=== PATIENT | female | born 1980 | race Caucasian/White ===

== ENCOUNTER 2017-06-06 10:17 | Emergency (ER) | payer MEDICAID ==
[2017-06-06 10:39] VITALS: BP 121/76
== END 2017-06-06 12:20 | disposition home or self-care (01) ==
LOC: ED 10:17
DX: G44.209 Tension-type headache, unspecified, not intractable (principal); R10.30 Lower abdominal pain, unspecified

== ENCOUNTER 2017-09-30 20:04 | Emergency (ER) | payer MEDICAID ==
[~2017-09-30] VITALS: Ht 167.6 cm; Wt 70.9 kg
[2017-09-30 21:20] VITALS: Ht 167.6 cm; Wt 70.9 kg
[2017-10-01 01:13] VITALS: BP 105/61
== END 2017-10-01 01:13 | disposition home or self-care (01) ==
LOC: ED 20:04
DX: G43.909 Migraine, unspecified, not intractable, without status migrainosus (principal)
CPT/HCPCS: J0780; J1885

== ENCOUNTER 2018-12-09 04:21 | Emergency (ER) | payer MEDICAID ==
[~2018-12-09] VITALS: Ht 160 cm; Wt 70.8 kg
[2018-12-09 04:29] VITALS: Ht 160 cm; Wt 70.8 kg
[2018-12-09 06:17] LABS: BASOPHIL % 0.1 % (0-2); PLATELET COUNT 207 x10^3mcL (130-400); RED CELL DISTRIBUTION WIDTH 13.3 % (11.5-14.5)
[2018-12-09 07:57] LABS: ALBUMIN 3.8 g/dL (3.4-5.0); ALKALINE PHOSPHATASE 46 U/L (46-116); ALT/SGPT 31 U/L (14-59); AST/SGOT 18 U/L (15-37); BILIRUBIN TOTAL 0.5 mg/dL (0.20-1.00); CALCIUM 8.5 mg/dL (8.5-10.1); CARBON DIOXIDE 21.8 mmol/L (21-32); CHLORIDE SERUM 104 mmol/L (98-107); CREATININE SERUM 0.7 mg/dL (0.6-1.0); GFR1 > 60 mL/min; GLUCOSE SERUM 106 mg/dL (74-106); LIPASE 181 IU/L (73-393); POTASSIUM SERUM 4.1 mmol/L (3.5-5.1); SODIUM SERUM 137 mmol/L (136-145); TOTAL PROTEIN, SERUM 7.2 g/dL (6.4-8.2)
[2018-12-09 08:30] VITALS: BP 120/87
== END 2018-12-09 08:30 | disposition home or self-care (01) ==
LOC: ED 04:21
PROVIDERS: Emergency Medicine
DX: K29.70 Gastritis, unspecified, without bleeding (principal)
CPT/HCPCS: J2270; J2405; J7030; Q0092